=== PATIENT | male | born 1985 | race Caucasian/White ===

== ENCOUNTER 2018-07-18 00:55 | Emergency (ER) | payer SELFPAY ==
[2018-07-18 01:04] VITALS: BP 139/71
[2018-07-18] MEDS ORDERED: IPRATROPIUM/ALBUTEROL 0.5-2.5 MG/3 ML AMPUL NEB ONE (01:42)
--- NOTE | 2018-07-18 01:44 | ER Document Report ---
ED General - General Chief Complaint: Flank Pain Stated Complaint: PROBLEMS URINATING Time Seen by Provider: 07/18/18 01:33 Notes: Patient is a 32-year-old male that comes to the emergency department for several complaints. First complaint is wheezing and coughing that has been going on for several weeks. He does have a known history of asthma, states his albuterol seems to help within the coughing and wheezing returns. He denies smoking. Second complaint is he states that he has pain over his mid back on both sides near his kidneys. He denies nausea or vomiting, dysuria, hematuria, history of kidney stones or kidney infection. Third complaint is occasionally difficulty having bowel movements. Denies bloody bowel movements. Denies abdominal pain. No chest pain. Denies any daily medications, surgeries. He drinks occasional alcohol, he smokes methamphetamine occasionally, he denies injecting methamphetamine except for a long time ago. TRAVEL OUTSIDE OF THE [place] IN LAST 30 DAYS: No - Related Data Allergies/Adverse Reactions: No Known Allergies Allergy (Verified 07/18/15 14:11) Past Medical History - General Information source: Patient - Social History Smoking Status: Never Smoker Frequency of alcohol use: Occasional Drug Abuse: Methamphetamine Lives with: Alone Family History: Reviewed & Not Pertinent Pulmonary Medical History: Reports: Hx Asthma Surgical Hx: Negative - Immunizations Immunizations up to date: Yes Hx Diphtheria, Pertussis, Tetanus Vaccination: Yes Review of Systems - Review of Systems Constitutional: No symptoms reported EENT: No symptoms reported Cardiovascular: No symptoms reported Respiratory: See HPI Gastrointestinal: See HPI Genitourinary: See HPI Male Genitourinary: No symptoms reported Musculoskeletal: See HPI Skin: No symptoms reported Hematologic/Lymphatic: No symptoms reported Neurological/Psychological: No symptoms reported Physical Exam - Vital signs Vitals: Temp Pulse Resp BP Pulse Ox 97.4 F 77 16 139/71 H 97 07/18/18 01:02 07/18/18 01:02 07/18/18 01:02 07/18/18 01:02 07/18/18 01:02 - Notes Notes: GENERAL: Alert, interacts well. No acute distress. HEAD: Normocephalic, atraumatic. EYES: Pupils equal, round, and reactive to light. Extraocular movements intact. ENT: Oral mucosa moist, tongue midline. Oropharynx unremarkable. Airway patent. Nares patent, no nasal septal hematoma, TM's intact. NECK: Full range of motion. Supple. Trachea midline. LUNGS: Expiratory wheezes throughout, however no tachypnea, no signs of distress , speaks in clear even sentences. No rales or rhonchi. HEART: Regular rate and rhythm. No murmur ABDOMEN: Soft, non-tender. Non-distended. Bowel sounds present in all 4 quadrants. GENITOURINARY: Deferred EXTREMITIES: Moves all 4 extremities spontaneously. No edema, normal radial and dorsalis pedis pulses bilaterally. No cyanosis. BACK: no cervical, thoracic, lumbar midline tenderness. No saddle anesthesia, normal distal neurovascular exam. NEUROLOGICAL: Alert and oriented x3. Normal speech. [cranial nerves II through XII grossly intact]. PSYCH: Normal affect, normal mood. SKIN: Warm, dry, normal turgor. No rashes or lesions noted. Course - Re-evaluation Re-evalutation: Patient well-appearing on exam except for expiratory wheezes. No tachypnea, tachycardia, unremarkable ENT exam unremarkable abdominal exam, unremarkable back exam. No neurological deficits. Has a variety of complaints. Discussed the dangers of methamphetamine use, patient states understanding that it is lethal. Patient provided with DuoNeb, after this his wheezing completely resolved. He states he has albuterol and inhaler at home. Placing on prednisone. CBC, chemistry unremarkable except for elevated eosinophils consistent with presentation with asthma exacerbation. Chest x-ray is unremarkable. Urinalysis unremarkable. Presentation does not suggest kidney abnormality, no fever, no distress or concerning abnormality suggesting epidural abscess or other source of infection at this time. Discussed prednisone use, follow-up, and return precautions with patient. Patient states satisfaction and agreement with plan. - Vital Signs Vital signs: Temp Pulse Resp BP Pulse Ox 97.4 F 77 16 139/71 H 97 07/18/18 01:02 07/18/18 01:02 07/18/18 01:02 07/18/18 01:02 07/18/18 01:02 - Laboratory Result Diagrams: 07/18/18 01:16 07/18/18 01:16 Laboratory results interpreted by me: 07/18/18 07/18/18 07/18/18 01:16 01:16 01:16 Eosinophils % 13.5 H Absolute Eosinophils 1.3 H Carbon Dioxide 33 H Urine Ascorbic Acid 40 H Discharge - Discharge Clinical Impression: Wheezing, Cough, Flank pain Condition: Stable Disposition: HOME, SELF-CARE Additional Instructions: Your laboratory workup does not show any concerning a normality at this time. Your chest x-ray is normal. Your evaluation is consistent with a prednisone as prescribed to completion, continue to use your albuterol inhaler and nebulizer. Do not smoke. Follow-up with primary care. Return to the emergency department for any concerning symptoms including fever, difficulty breathing, or any other concerning or worsening symptoms. Prescriptions: Prednisone 60 mg PO DAILY #15 tablet
[2018-07-18 01:49] LABS: ABSOLUTE BASOPHILS # (AUTO) 0.1 10^3/uL (0.0-0.2); ABSOLUTE EOSINOPHILS # (AUTO) 1.3 10^3/uL (0.0-0.6); ABSOLUTE LYMPHOCYTES (AUTO) 2.6 10^3/uL (0.5-4.7); ABSOLUTE MONOCYTES (AUTO) 0.6 10^3/uL (0.1-1.4); ABSOLUTE NEUT (AUTO) 4.7 10^3/uL (1.7-8.2); EOSINOPHILS % (AUTO) 13.5 % (0-6); HEMATOCRIT 48.6 % (37.9-51.0); MEAN CORPUSCULAR HEMOGLOBIN 30.7 pg (27.0-33.4); MEAN CORPUSCULAR VOLUME 88 fl (80-97); MONOCYTES % (AUTO) 6.9 % (3-13); PLATELET COUNT 267 10^3/uL (150-450); RED BLOOD COUNT 5.54 10^6/uL (4.35-5.55); RED CELL DISTRIBUTION WIDTH 12.6 % (11.5-14.0); SEGMENTED NEUTROPHILS % (AUTO) 50.6 % (42-78); TOTAL CELLS COUNTED % (AUTO) 100 %; WHITE BLOOD COUNT 9.2 10^3/uL (4.0-10.5)
[2018-07-18 01:58] LABS: ALANINE AMINOTRANSFERASE 21 U/L (21-72); ALBUMIN 4.5 g/dL (3.5-5.0); ALKALINE PHOSPHATASE 58 U/L (38-126); ANION GAP 11 (5-19); ASPARTATE AMINO TRANSFERASE 26 U/L (17-59); BILIRUBIN,DIRECT 0.2 mg/dL (0.0-0.4); BILIRUBIN,TOTAL 0.7 mg/dL (0.2-1.3); BLOOD UREA NITROGEN 13 mg/dL (7-20); CALCIUM 9.8 mg/dL (8.4-10.2); CARBON DIOXIDE 33 mmol/L (22-30); CHLORIDE 100 mmol/L (98-107); GLUCOSE 82 mg/dL (75-110); POTASSIUM 4.5 mmol/L (3.6-5.0); TOTAL PROTEIN 7.2 g/dL (6.3-8.2)
[2018-07-18 02:22] LABS: APPEARANCE,URINE SLIGHTLY-CLOUDY; BILIRUBIN,URINE NEGATIVE (NEGATIVE); COLOR,URINE YELLOW; GLUCOSE, URINE NEGATIVE (NEGATIVE); KETONES,URINE NEGATIVE (NEGATIVE); LEUKOCYTE ESTERASE,URINE NEGATIVE (NEGATIVE); NITRITE,URINE NEGATIVE (NEGATIVE); PROTEIN,URINE NEGATIVE (NEGATIVE); URINE SPECIFIC GRAVITY 1.027; UROBILINOGEN,URINE NEGATIVE mg/dL (<2.0)
--- NOTE | 2018-07-18 03:44 | RADIOLOGY REPORT (SQ) ---
EXAM DESCRIPTION: XR CHEST 2 VIEWS COMPLETED DATE/TME: 07/18/2018 01:42 CLINICAL HISTORY: 32 years, Male, persistent cough COMPARISON: None. NUMBER OF VIEWS: 2 TECHNIQUE: Frontal and lateral views of the chest LIMITATIONS: None. FINDINGS: The heart size is normal. Lungs are clear. No pneumothorax IMPRESSION: Negative chest 2010 [facility] [employer]- All Rights Reserved
[2018-07-18] MEDS ORDERED: PREDNISONE 20 MG TABLET PO ONE (03:56)
== END 2018-07-18 04:48 | disposition home or self-care (01) ==
LOC: ER 00:55
DX: R06.2 Wheezing (principal); R05 Cough; R10.9 Unspecified abdominal pain
CPT/HCPCS: 94640; 99284; 36415; 85025; 80053; 81001; 71046; J7512; J7620

== ENCOUNTER → 2019-12-17 | Outpatient (CLI) | payer SELFPAY ==
--- NOTE | 2019-12-17 12:16 | ER RDC ASSESSMENT REPORT ---
Intake - In the Last 14 days Have you been in close contact with someone CONFIRMED: No - Objective Temperature: 96.3 F Pulse Rate: 65 Respiratory Rate: 18 Blood Pressure: 122/86 O2 Sat by Pulse Oximetry: 100 Objective: Given above, testing performed: If Testing Performed: Test Specimen Type Sent to [facility] - General Mode of Arrival: Ambulatory Information source: Patient Notes: Patient presents complaining of sinus congestion symptoms with facial pressure for the past 2 weeks. Patient states that he was recently released from custodial and had been tested with a azithromycin. Patient finished antibiotic without any improvement of his symptoms. Patient denies any fever. Patient denies any difficulty breathing. Patient denies any concern about possible covid 19 infection. Patient states that he is having a sinus infection and just needs treatment. - HPI Associated symptoms: Nonproductive cough. denies: Diarrhea, Fever, Nausea, Vomiting, Shortness of breath Similar symptoms previously: Yes - 2 weeks Recently seen / treated by doctor: Yes - Related Data Allergies/Adverse Reactions: No Known Allergies Allergy (Verified 07/18/15 14:11) Past Medical History - General Information source: Patient - Social History Smoking Status: Never Smoker Frequency of alcohol use: None Drug Abuse: None Occupation: None Family History: Reviewed & Not Pertinent Pulmonary Medical History: Reports: Hx Asthma Renal/ Medical History: Denies: Hx Peritoneal Dialysis Past Surgical History: Reports: Other - Sinus surgery Physical Exam - General General appearance: Appears well, Alert In distress: None Notes: PHYSICAL EXAMINATION: GENERAL: Well-appearing and in no acute distress. HEAD: Atraumatic, normocephalic. EYES: sclera anicteric, conjunctiva are normal. ENT: Positive rhinorrhea, tender maxillary and frontal sinuses, no facial swelling NECK: Normal range of motion, supple without lymphadenopathy LUNGS: Dry cough, scattered wheezing bilaterally HEART: Regular rate and rhythm without murmurs EXTREMITIES: Normal range of motion, no pitting edema. NEUROLOGICAL: Normal speech. Normal gait. PSYCH: Normal mood, normal affect. SKIN: Warm, Dry, normal turgor, no rashes or lesions noted [facility] Discharge - Discharge Clinical Impression: Wheezing Acute frontal sinusitis, unspecified Qualifiers: Recurrence: not specified as recurrent Qualified Code(s): J01.10 - Acute frontal sinusitis, unspecified Asthma Qualifiers: Asthma severity: unspecified severity Asthma persistence: unspecified Asthma complication type: unspecified Qualified Code(s): J45.909 - Unspecified asthma, uncomplicated Condition: Stable Disposition: Home; Selfcare
[2019-12-17 12:20] VITALS: BP 122/86
== END ==
LOC: RDC 11:48
PROVIDERS: ATTEND Registered Nurse
DX: J01.10 Acute frontal sinusitis, unspecified (principal); R06.02 Shortness of breath; R51 Headache; J45.909 Unspecified asthma, uncomplicated